=== PATIENT | male | born 1960 | race Two or more races ===

== ENCOUNTER 2017-04-17 20:47 | Emergency (ER) | payer BC ==
[~2017-04-17] VITALS: Ht 180.3 cm; Wt 133.3 kg
[~2017-04-17 20:47] MED LIST: AMLODIPINE BESY10 MG PO; FLEXERIL10 MG PO; IRON325 MG PO; LITE COAT ASPI325 M1 PO; METOPROLOL SUC100 MG PO; MULTI VITAMIN1 EACH PO; POLYETHYLENE GL17 GM PO; PRINIVIL20 MG PO
[2017-04-17 21:51] LABS: ADD MIUA? NO; BILIRUBIN NEGATIVE; BLOOD NEGATIVE; COLOR STRAW ((YELLOW)); GLUCOSE (STRIP) NEGATIVE; KETONES NEGATIVE; LEUKOCYTES NEGATIVE; NITRITE NEGATIVE; PROTEIN (STRIP) NEGATIVE; SPECIFIC GRAVITY 1.004 (1.000-1.030); UROBILINOGEN 0.2 MG/DL (0.2-1.0)
[2017-04-17] MEDS ORDERED: IMITREX100 MG PO (23:52)
[2017-04-17] MEDS ORDERED: REGLAN10 MG PO (23:52)
[2017-04-17] MEDS ORDERED: NAPROSYN500 MG PO (23:52)
[2017-04-18 00:07] VITALS: BP 185/85
== END 2017-04-18 00:09 | disposition home or self-care (01) ==
LOC: EME 20:47 → EXP 20:47
PROVIDERS: Physician Assistant
DX: G43.909 Migraine, unspecified, not intractable, without status migrainosus (principal); I10 Essential (primary) hypertension
CPT/HCPCS: 70450; 81003; 99281; 99284; J1200; J2765; J3030; J7030

== ENCOUNTER 2017-11-04 10:07 | Emergency (ER) | payer BC ==
[~2017-11-04] VITALS: Ht 175.3 cm; Wt 133.7 kg
[~2017-11-04 10:07] MED LIST changes: +IMITREX100 MG PO; +NAPROSYN500 MG PO; +REGLAN10 MG PO
[2017-11-04] MEDS ORDERED: MOTRIN800 MG PO (13:31)
[2017-11-04] MEDS ORDERED: VENTOLIN HFA18 GM IH (13:31)
[2017-11-04 15:14] VITALS: BP 144/92
== END 2017-11-04 15:15 | disposition home or self-care (01) ==
LOC: EME 10:07
DX: J10.1 Influenza due to other identified influenza virus with other respiratory manifestations (principal); I10 Essential (primary) hypertension; Z88.8 Allergy status to other drugs, medicaments and biological substances
CPT/HCPCS: 71046; 87502; 94640; 99281; 99284; J7030